=== PATIENT | female | born 1990 | race Hispanic/Latino ===

== ENCOUNTER 2018-06-13 18:31 | Emergency (ER) | payer OTHER ==
[2018-06-13 19:33] LABS: #Basophils 0.1 thou/uL (0.0-0.2); #Lymphocytes 1.5 thou/uL (1.20-3.40); #Monocytes 0.4 thou/uL (0.11-0.59); #Neutrophils 10.7 thou/uL (1.40-6.50); %Basophils 0.4 % (0.0-1.0); %Eosinophils 0.1 % (0.0-10.0); %Lymphocytes 12.1 % (21.0-51.0); %Neutrophils 84.4 % (42.0-75.0); Hemoglobin 11.6 g/dL (12.0-16.0); Mean Corpuscular HGB CONC 31.4 g/dL (32.0-36.0); Mean Corpuscular Hemoglobin 25.1 pg (27.0-31.0); Mean Corpuscular Volume 79.9 fL (78.0-98.0); Mean Platelet Volume 7.7 fL (7.4-10.4); Platelet Count 387 thou/uL (130-400); RBC Distribution Width 15.8 % (11.5-14.5); Red Blood Cell (RBC) Count 4.62 mill/uL (4.20-5.40); White Blood Cell (WBC) Count 12.7 thou/uL (4.8-10.8)
[2018-06-13 19:42] LABS: ALT (SGPT) 22 U/L (8-55); AST (SGOT) 19 U/L (5-34); Albumin 4.5 g/dL (3.5-5.0); Alkaline Phosphatase 118 U/L (40-150); Anion Gap 14 mmol/L (10-20); BUN (Urea Nitrogen) 13 mg/dL (7.0-18.7); Bilirubin, Total 0.3 mg/dL (0.2-1.2); CK (CPK) 120 U/L (29-168); Calc. Creatinine Clearance 0 mL/min (70-130); Calcium 9.4 mg/dL (7.8-10.44); Carbon Dioxide 21 mmol/L (22-29); Chloride 102 mmol/L (98-107); Estimated GFR-MDRD Greater than 90; Globulin 4.3 g/dL (2.4-3.5); Glucose 105 mg/dL (70-105); Potassium 3.7 mmol/L (3.5-5.1); Protein, Total 8.8 g/dL (6.0-8.3); Sodium 133 mmol/L (136-145)
--- NOTE | 2018-06-13 20:00 | CT ---
CT BRAIN WITHOUT CONTRAST: 06/13/18 HISTORY: Headache. FINDINGS: Comparison made with the exam of 02/04/12. The large area of left cerebral porencephaly, encephalomalacia and gliosis with overlying craniotomy changes are again seen. These are unchanged. The ventricular size is stable. No evidence of acute inf arct, hemorrhage or midline shift is seen. Encephalomalacia in the right cerebellar hemisphere appear s to be new since the last exam. No acute osseous abnormalities are seen. The visualized paranasal si nuses and mastoid air cells are well aerated. IMPRESSION: No CT evidence of acute intracranial process. POS: [facility]
[2018-06-13 20:03] LABS: Carbamazepine-Tegretol Less than 1.9 ug/mL (4.0-12.0)
[2018-06-13] MEDS ORDERED: Metoclopramide HCl 10 MG/2 ML VIAL ONE (21:05)
[2018-06-13] MEDS ORDERED: Lorazepam 2 MG/ML VIAL ONE (21:05)
[2018-06-13] MEDS ORDERED: diphenhydrAMINE 50 MG/ML VIAL ONE (21:05)
== END 2018-06-13 22:44 | disposition home or self-care (01) ==
LOC: ERS 18:31
DX: R51 Headache (principal); G40.909 Epilepsy, unspecified, not intractable, without status epilepticus
CPT/HCPCS: 36415; 70450; 80053; 80156; 80184; 82550; 84146; 84484; 85025; 96361; 96374; 96375; J1200; J2060; J2765

== ENCOUNTER 2019-02-19 19:48 | Inpatient (IN) | payer OTHER ==
[2019-02-19] MEDS ORDERED: Lorazepam 2 MG/ML VIAL ONE (20:19)
--- NOTE | 2019-02-19 21:22 | CT ---
CT HEAD WITHOUT CONTRAST: 02/19/19 HISTORY: Seizure. Comparison made to prior exam of 06/13/18. The area of porencephaly and encephalomalacia in the left s uperior frontal lobe is again seen and is stable in appearance. Encephalomalacia involving the right cerebellum is also stable. No hemorrhage or mass. No interval change. IMPRESSION: No acute interval change. POS: OFF
[2019-02-19 21:23] LABS: #Basophils 0.1 thou/uL (0.0-0.2); #Lymphocytes 2.3 thou/uL (1.20-3.40); #Monocytes 1.4 thou/uL (0.11-0.59); #Neutrophils 6.4 thou/uL (1.40-6.50); %Basophils 0.5 % (0.0-1.0); %Lymphocytes 23.1 % (21.0-51.0); %Monocytes 13.4 % (0.0-10.0); Hemoglobin 10.5 g/dL (12.0-16.0); Mean Corpuscular HGB CONC 30.9 g/dL (32.0-36.0); Mean Corpuscular Hemoglobin 23.1 pg (27.0-31.0); Mean Corpuscular Volume 74.9 fL (78.0-98.0); Mean Platelet Volume 8.1 fL (7.4-10.4); Platelet Count 318 thou/uL (130-400); RBC Distribution Width 16.9 % (11.5-14.5); Red Blood Cell (RBC) Count 4.52 mill/uL (4.20-5.40); White Blood Cell (WBC) Count 10.2 thou/uL (4.8-10.8)
[2019-02-19 21:36] LABS: ALT (SGPT) 36 U/L (8-55); AST (SGOT) 34 U/L (5-34); Albumin 4.1 g/dL (3.5-5.0); Alkaline Phosphatase 105 U/L (40-110); Anion Gap 15 mmol/L (10-20); BUN (Urea Nitrogen) 11 mg/dL (7.0-18.7); Bilirubin, Total 0.5 mg/dL (0.2-1.2); Calc. Creatinine Clearance 0 mL/min (70-130); Calcium 8.9 mg/dL (7.8-10.44); Carbon Dioxide 17 mmol/L (22-29); Chloride 101 mmol/L (98-107); Estimated GFR-MDRD Greater than 90; Globulin 4.2 g/dL (2.4-3.5); Glucose 95 mg/dL (70-105); Potassium 3.2 mmol/L (3.5-5.1); Protein, Total 8.3 g/dL (6.0-8.3); Sodium 130 mmol/L (136-145)
[2019-02-19 22:09] LABS: Bilirubin Negative (Negative); Blood, Urine Negative (Negative); Clarity Clear (Clear); Glucose, Urine (Dipstick) Normal (Negative); Leukocyte Negative Leu/uL (Negative); Nitrite Negative (Negative); Protein, Urine (Dipstick) Negative (Neg-Trace); Urobilinogen Normal mg/dL (Less than 2)
[2019-02-19 22:11] LABS: Pregnancy Test - Urine (BHCG) Negative (Negative); Pregu Control Background? CLEAR/WHITE (CLR/WHITE); Pregu Control Bar Appear? YES (CONTROL BAR); Specific Gravity 1.007 (1.002-1.036)
[2019-02-19 22:21] LABS: Amphetamine Not Detected (NotDetected); Barbiturates Screen Detected (NotDetected); Benzodiazepine Screen Not Detected (NotDetected); Cocaine Metabolite Screen Not Detected (NotDetected); Medtox Control Line Valid? VALID (VALID); Medtox Reader # READER 4; Methadone Not Detected (NotDetected); Methamphetamine Not Detected (NotDetected); Opiate Screen Not Detected (NotDetected); Oxycodone Screen Not Detected (NotDetected); Phencyclidine (PCP) Not Detected (NotDetected); THC/Cannabinoid Screen Not Detected (NotDetected); Tricyclic Screen Not Detected (NotDetected)
[2019-02-20 02:24] VITALS: BMI 38.7
[2019-02-20] MEDS ORDERED: HYDROcodone/Acetaminophen 5/325 mg Tablet PO PRN (02:40)
[2019-02-20] MEDS ORDERED: Lorazepam 2 MG/ML VIAL SLOW IVP PRN (02:42)
[2019-02-20] MEDS ORDERED: Potassium Phosphate 30 MMOL in Sodium Chloride 0.9% 500 ML IVPB SCH (03:00)
--- NOTE | 2019-02-20 03:03 | HP ---
PRESENTING COMPLAINT: Recurrent seizure episode. HISTORY OF PRESENT ILLNESS: Eric Wesley is a 28-year-old female with past medical history of brain tumor status post excision with history of recurrent seizure since then, currently on Topamax, phenobarb, and Felbatol. The patient has not of her medications 1 week ago, but restarted taking them after refill 2 days ago, but developed recurrent seizure since last night with episodes occurring initially every few hours, but today episodes will occur in frequency of every 15 minutes. The patient had multiple seizures between presentation in the emergency room and being evaluated of 5 episodes within an hour. The seizure was initially abated with Ativan, but she continued to have recurrent episodes. I had recommended IV Dilantin and she has been seizure-free since the last 1 hour. She is more awake now. She denies any dysuria. She denies any headache. She admits to feeling fatigued. She states since her medication change by her neurologist who is outside of town, she was still having intermittent seizures. Her last episode prior to this acute symptom was 1 month ago. PAST MEDICAL HISTORY: Significant for recurrent seizure disorder. HOME MEDICATIONS: Include phenobarb 32.4 2-1/2 tablets t.i.d., Topamax 50 mg one tab in a.m., half tab at noon and one tab in p.m. as well as Felbatol 600 mg 1-1/2 tab t.i.d. ALLERGIES: NO KNOWN DRUG ALLERGIES. FAMILY HISTORY: No history of seizure activity. SOCIAL HISTORY: The patient is unemployed. Lives at home. No history of alcohol, tobacco, or illicit drug use. REVIEW OF SYSTEMS: All systems reviewed x10 were negative except as mentioned above, despite the patient's fatigue. PHYSICAL EXAMINATION: GENERAL: Young overweight female, drowsy, but conversant. VITAL SIGNS: Blood pressure of 112/68, respiratory rate of 18, O2 saturation is 95% on room air, afebrile. HEENT: Head is atraumatic, normocephalic. Pupils equal and reactive to light. Extraocular motor movement intact. NECK: No JVD. No carotid bruit. RESPIRATORY: Good air entry. No crepitation. CARDIOVASCULAR: S1, S2. Rate and rhythm regular. ABDOMEN: Obese, but soft. Bowel sounds positive. No tenderness. EXTREMITIES: No pedal edema. No calf tenderness. NEURO: The patient is drowsy as noted, but moving extremities. No neurological focal motor deficit now. DIAGNOSTIC STUDIES: Brain CT shows no acute intracranial abnormality, encephalomalacia in the left superior frontal lobe is again seen. Stable from previous exam. LABORATORY DATA: Rest of labs; WBC 10.2, hemoglobin 10.5, and neutrophils 63%. Potassium 3.2, sodium 130, bicarb 17, BUN 11, creatinine 0.6, AST and alkaline phosphatase normal. Urinalysis was negative. Urine test negative. Urine drug screen positive for barbiturates. Serum phenobarb level of 16.4. IMPRESSION: Status epilepticus - resolved. PLAN: We will admit the patient to the neuro unit for observation. If phenobarb levels within normal limits, we will continue phenobarb at current dose since previous recurrent seizure even before brief period of medication and nonadherence. We will increase Topamax to 50 mg t.i.d. Continue Felbatol and phenobarb at current dosage. We will consult Neuro for any additional input in a.m. No evidence of infection on examination today. We will continue gentle IV fluid. We will correct potassium. We will obtain magnesium level and also correct if low. Subcutaneous heparin for DVT prophylaxis. Given mild anemia, we will obtain iron level. If low, we will start the patient on p.o. iron. ADVANCED DIRECTIVES: The patient is full code. Job ID: [id number]
[2019-02-20 03:11] LABS: #Basophils 0.1 thou/uL (0.0-0.2); #Lymphocytes 2.7 thou/uL (1.20-3.40); #Monocytes 1.1 thou/uL (0.11-0.59); #Neutrophils 5.3 thou/uL (1.40-6.50); %Lymphocytes 29.2 % (21.0-51.0); %Monocytes 12.3 % (0.0-10.0); %Neutrophils 57.4 % (42.0-75.0); Hemoglobin 9.9 g/dL (12.0-16.0); Mean Corpuscular HGB CONC 32.8 g/dL (32.0-36.0); Mean Corpuscular Hemoglobin 24.3 pg (27.0-31.0); Mean Corpuscular Volume 74.2 fL (78.0-98.0); Mean Platelet Volume 8.1 fL (7.4-10.4); Platelet Count 300 thou/uL (130-400); RBC Distribution Width 16.7 % (11.5-14.5); Red Blood Cell (RBC) Count 4.06 mill/uL (4.20-5.40); White Blood Cell (WBC) Count 9.3 thou/uL (4.8-10.8)
[2019-02-20 03:32] LABS: Anion Gap 12 mmol/L (10-20); BUN (Urea Nitrogen) 9 mg/dL (7.0-18.7); Calc. Creatinine Clearance 183 mL/min (70-130); Calcium 8.8 mg/dL (7.8-10.44); Carbon Dioxide 20 mmol/L (22-29); Chloride 109 mmol/L (98-107); Estimated GFR-MDRD Greater than 90; Glucose 115 mg/dL (70-105); Iron 18 ug/dL (50-170); Iron Binding Capacity, Total 386 mcg/dL (265-497); Sodium 138 mmol/L (136-145)
[2019-02-20] MEDS ORDERED: Potassium Chloride 20 MEQ TAB PO SCH (04:00)
[2019-02-20] MEDS: Potassium Chloride 10 MEQ in Dextrose 5%-Lactated Ringers 1,000 ML IV SCH ×2 (05:13→16:43)
[2019-02-20] MEDS ORDERED: FLU VACC QS2019-20(6MOS UP)/PF 60 MCG/0.5 ML SYRINGE IM ONE (09:00)
[2019-02-20] MEDS ORDERED: Topiramate 100 MG TAB PO SCH (09:00)
[2019-02-20] MEDS: Heparin 5,000 UNITS/ML VIAL SC SCH ×3 (09:16→20:52)
[2019-02-20] MEDS: PHENobarbital 32.4 MG TAB PO SCH ×3 (09:17→20:57)
[2019-02-20] MEDS: FELBAMATE 600 MG PO SCH ×3 (09:20→20:52)
[2019-02-20] MEDS: Acetaminophen 325 MG TAB PO PRN (10:43)
[2019-02-20] MEDS ORDERED: levETIRAcetam 2,000 MG in Sodium Chloride 0.9% 100 ML IVPB SCH (17:00)
--- NOTE | 2019-02-20 20:45 | CON ---
DATE OF CONSULTATION: 02/20/2019 CONSULTING PHYSICIAN: Hospitalist Service. IMPRESSION: 1. Partial status epilepticus. 2. 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 PLAN: 1. Continue phenobarbital and Felbatol. 2. Discontinue Topamax. 3. Add Keppra. HISTORY OF PRESENT ILLNESS: Ms. Reyes is a 28-year-old female. She had a brain tumor resected in 2009. She has been followed by a neurologist in [place], [place]. They report that she has been on the same limited regimen of medications with increasing doses for the last several years. Her seizures are usually lateralized to the right side. They may go on for a day or two and usually resolve spontaneously. They have not had problems maintaining seizure control to this severity since her admission. She has been witnessed to have frequent seizures about every 5 minutes. Her EEG confirmed a left hemispheric periodic focus of seizure activity. Her CT of the brain shows an area of edema in the left frontal lobe as well as in the right cerebellum. Her lab work was otherwise unremarkable. PAST MEDICAL HISTORY: Otherwise, negative. ALLERGIES: NONE. MEDICATION: List reviewed. SOCIAL HISTORY: She lives at home with the assistance of her family. She reportedly is independent in her activities of daily living. She has no tobacco or alcohol use. FAMILY HISTORY: Noncontributory. REVIEW OF SYSTEMS: Not obtainable at this point. PHYSICAL EXAMINATION: GENERAL: A well-nourished young woman, who is lying in bed, eating her supper. She is intermittently talkative. HEENT: Pupils are equal. Conjunctivae are clear. Oropharynx is clear. NECK: No lymphadenopathy. EXTREMITIES: No cyanosis or edema. NEUROLOGIC: She is awake and cooperative. Her face appears to be symmetric. She has some spastic right hemiparesis. No abnormal movements are seen. Gait is not tested. SUMMARY: Make adjustments in her treatment plan with hopes that this will improve with a different regimen. Job ID: [id number] [facility]
[2019-02-21 00:36] LABS: Anion Gap 11 mmol/L (10-20); BUN (Urea Nitrogen) 6 mg/dL (7.0-18.7); Calc. Creatinine Clearance 205 mL/min (70-130); Calcium 8.9 mg/dL (7.8-10.44); Carbon Dioxide 21 mmol/L (22-29); Chloride 109 mmol/L (98-107); Estimated GFR-MDRD Greater than 90; Glucose 103 mg/dL (70-105); Potassium 3.2 mmol/L (3.5-5.1); Sodium 138 mmol/L (136-145)
[2019-02-21] MEDS: Acetaminophen 325 MG TAB PO PRN ×4 (00:55→15:30)
[2019-02-21] MEDS: FELBAMATE 600 MG PO SCH ×3 (08:29→21:18)
[2019-02-21] MEDS: Heparin 5,000 UNITS/ML VIAL SC SCH ×3 (08:29→21:19)
[2019-02-21] MEDS: PHENobarbital 32.4 MG TAB PO SCH ×3 (08:33→21:19)
[2019-02-21] MEDS: Lorazepam 2 MG/ML VIAL SLOW IVP PRN ×2 (08:36→17:00)
[2019-02-21] MEDS ORDERED: Potassium Chloride 20 MEQ TAB PO SCH (09:15)
[2019-02-21] MEDS ORDERED: Iron Sucrose Complex 100 MG in Sodium Chloride 0.9% 100 ML IVPB SCH (09:15)
[2019-02-21] MEDS ORDERED: Iron, Sodium Ferric Gluconate 125 MG in Sodium Chloride 0.9% 100 ML IVPB SCH (09:30)
--- NOTE | 2019-02-21 10:07 | EEG ---
Referring Physician: Alia SPEARS EEG # [id number] TEST TYPE: ROUTINE PORTABLE INPATIENT REPORT: AN EEG USING THE INTERNATIONAL TEN-TWENTY SYSTEM OF ELECTRODE PLACEMENT WAS PERFORMED. The waking background, at best, is a 9 hertz alpha frequency. There were frequent bursts of left hemispheric dysrhythmic activity. Some of this appeared to be high amplitude alpha and others appeared to be more of a low amplitude sharp and slow wave discharge in the region. The bursts would last around 20 seconds. Photic stimulation was unremarkable. IMPRESSION: THIS IS AN ABNORMAL STUDY FOR THE FINDINGS OF FREQUENT LEFT HEMISPHERIC EPILEPTIFORM BURSTS CONSISTENT WITH SEIZURE ACTIVITY. Joy Operator: LUCINDA Forklift Picker: [email or web address]
--- NOTE | 2019-02-21 12:15 | PDOC.HOSPP ---
- Subjective Encounter Date: 02/21/19 Encounter Time: 09:00 Subjective: pt in bed not oriented, mom at bedside states " she just had a seizure". pt was given ativan - Objective Vital Signs & Weight: Vital Signs (12 hours) Temp Pulse Resp BP Pulse Ox 02/21/19 11:00 98.1 F 99 16 119/79 98 02/21/19 07:00 98.6 F 95 18 100/62 93 L 02/21/19 03:18 98.8 F 119 H 18 124/87 97 Weight Weight 198 lb I&O: 02/20/19 02/21/19 02/22/19 06:59 06:59 06:59 Intake Total 400 1560 400 Balance 400 1560 400 Result Diagrams: 02/20/19 03:04 02/21/19 00:11 Hospitalist ROS - Review of Systems Other: unable to obtain - Medication Medications: Active Medications Generic Name Dose Route Start Last Admin Trade Name Freq PRN Reason Stop Dose Admin Acetaminophen 650 mg 02/20/19 02:40 02/21/19 08:29 Tylenol PO 650 mg Q4H PRN Administration Headache/Fever/Mild Pain (1-3) Heparin Sodium (Porcine) 5,000 units 02/20/19 09:00 02/21/19 08:29 Heparin SC 5,000 units TID JONATAN Administration Levetiracetam 750 mg/ Sodium 107.5 mls @ 215 mls/hr 02/21/19 09:00 02/21/19 08:44 Chloride IVPB 107.5 mls BID JONATAN Administration Lorazepam 1 mg 02/21/19 08:07 02/21/19 08:36 Ativan SLOW IVP 1 mg Q6H PRN Administration Seizures Felbamate 600 Mg 1.5 each 02/20/19 09:00 02/21/19 08:29 Tablet PO 1.5 each TID JONATAN Administration Phenobarbital 81 mg 02/20/19 09:00 02/21/19 08:33 Phenobarbital PO 81 mg TID JONATAN Administration - Exam Neck: negative: supple, symmetric, no JVD, no thyromegaly, no lymphadenopathy, no carotid bruit, JVD Heart: negative: RRR, no murmur, no gallops, no rubs, normal peripheral pulses, irregular, diminshed peripheral pulses, murmur present, II/IV, III/IV Respiratory: negative: CTAB, no wheezes, no rales, no ronchi, normal chest expansion, no tachypnea, normal percussion, rales, rhonchi, tachypneic, wheezes Hosp A/P (1) Status epilepticus Code(s): G40.901 - EPILEPSY, UNSP, NOT INTRACTABLE, WITH STATUS EPILEPTICUS Status: Acute (2) Seizure Code(s): R56.9 - UNSPECIFIED CONVULSIONS Status: Acute (3) Brain lesion Code(s): G93.9 - DISORDER OF BRAIN, UNSPECIFIED Status: Acute - Plan pt's antiseizure meds adjusted per neurology. will monitor. pt not oriented currently possible post ictal vs ativan related. will watch her closely
--- NOTE | 2019-02-21 14:00 | PRG ---
DATE OF SERVICE: 02/21/2019 The patient continues to have focal seizures despite the loading dose of Keppra. She has been maintained on the phenobarbital and Felbatol. Her night was otherwise uneventful. Her vital signs have been stable and she is afebrile. She has not received any Ativan overnight. I have suggested we try to do some Ativan today to see if we can break the cycle. Job ID: [id number]
[2019-02-21] MEDS: Polyethylene Glycol 3350 17 GM Packet PO PRN (17:00)
[2019-02-21] MEDS: Senokot S 8.6-50 MG TAB PO SCH (21:19)
[2019-02-22] MEDS: PHENobarbital 32.4 MG TAB PO SCH ×3 (10:06→22:18)
[2019-02-22] MEDS: Heparin 5,000 UNITS/ML VIAL SC SCH ×3 (10:07→22:19)
[2019-02-22] MEDS: Senokot S 8.6-50 MG TAB PO SCH ×2 (10:07→22:19)
[2019-02-22] MEDS: FELBAMATE 600 MG PO SCH ×3 (10:08→22:18)
[2019-02-22] MEDS: Ferrous Gluconate 324 MG TAB PO SCH (10:09)
--- NOTE | 2019-02-22 14:04 | PDOC.HOSPP ---
- Subjective Encounter Date: 02/22/19 Encounter Time: 13:45 Subjective: pt up in bed drowsy but follows commands. - Objective Vital Signs & Weight: Vital Signs (12 hours) Temp Pulse Resp BP Pulse Ox 02/22/19 11:46 98.7 F 108 H 16 103/60 96 02/22/19 07:44 98.4 F 103 H 16 122/66 97 02/22/19 03:57 97.2 F L 94 16 96/55 L 96 Weight Weight 198 lb I&O: 02/21/19 02/22/19 02/23/19 06:59 06:59 06:59 Intake Total 1560 1440 Balance 1560 1440 Result Diagrams: 02/20/19 03:04 02/21/19 00:11 Hospitalist ROS - Review of Systems Other: pt sleepy - Medication Medications: Active Medications Generic Name Dose Route Start Last Admin Trade Name Freq PRN Reason Stop Dose Admin Acetaminophen 650 mg 02/20/19 02:40 02/21/19 15:30 Tylenol PO 650 mg Q4H PRN Administration Headache/Fever/Mild Pain (1-3) Ferrous Gluconate 324 mg 02/22/19 08:00 02/22/19 10:09 Fergon PO 324 mg QAM-WM JONATAN Administration Heparin Sodium (Porcine) 5,000 units 02/20/19 09:00 02/22/19 10:07 Heparin SC 5,000 units TID JONATAN Administration Levetiracetam 750 mg/ Sodium 107.5 mls @ 215 mls/hr 02/21/19 09:00 02/22/19 10:05 Chloride IVPB 107.5 mls BID JONATAN Administration Lorazepam 1 mg 02/21/19 08:07 02/21/19 17:00 Ativan SLOW IVP 1 mg Q6H PRN Administration Seizures Felbamate 600 Mg 1.5 each 02/20/19 09:00 02/22/19 10:08 Tablet PO 1.5 each TID JONATAN Administration Phenobarbital 81 mg 02/20/19 09:00 02/22/19 10:06 Phenobarbital PO 81 mg TID JONATAN Administration Polyethylene Glycol 17 gm 02/21/19 16:07 02/21/19 17:00 Miralax PO 17 gm DAILYPRN PRN Administration Constipation Senna/Docusate Sodium 1 tab 02/21/19 21:00 02/22/19 10:07 Senokot S PO 1 tab BID JONATAN Administration - Exam Heart: negative: RRR, no murmur, no gallops, no rubs, normal peripheral pulses, irregular, diminshed peripheral pulses, murmur present, II/IV, III/IV Respiratory: negative: CTAB, no wheezes, no rales, no ronchi, normal chest expansion, no tachypnea, normal percussion, rales, rhonchi, tachypneic, wheezes Gastrointestinal: negative: soft, non-tender, non-distended, normal bowel sounds , no palpable masses, no hepatomegaly, no splenomegaly, no bruit, no guarding, no rigidity, tender to palpation, distended, diminished bowl sounds, voluntary guarding Hosp A/P (1) Status epilepticus Code(s): G40.901 - EPILEPSY, UNSP, NOT INTRACTABLE, WITH STATUS EPILEPTICUS Status: Acute (2) Seizure Code(s): R56.9 - UNSPECIFIED CONVULSIONS Status: Acute (3) Brain lesion Code(s): G93.9 - DISORDER OF BRAIN, UNSPECIFIED Status: Acute - Plan pt's antiseizure meds adjusted per neurology. will monitor. pt not oriented currently possible post ictal vs ativan related. will watch her closely. 02/22 pt is drowsy but able to follow commands. will continue current meds and will give additional prn if needed.
[2019-02-22 14:54] LABS: #Basophils 0.1 thou/uL (0.0-0.2); #Eosinphils 0.1 thou/uL (0.0-0.7); #Lymphocytes 3.1 thou/uL (1.20-3.40); #Monocytes 0.8 thou/uL (0.11-0.59); #Neutrophils 5.4 thou/uL (1.40-6.50); %Basophils 0.8 % (0.0-1.0); %Eosinophils 0.7 % (0.0-10.0); %Neutrophils 57.5 % (42.0-75.0); Hemoglobin 10.3 g/dL (12.0-16.0); Mean Corpuscular HGB CONC 32.6 g/dL (32.0-36.0); Mean Corpuscular Hemoglobin 24.5 pg (27.0-31.0); Mean Platelet Volume 8.7 fL (7.4-10.4); Platelet Count 307 thou/uL (130-400); RBC Distribution Width 17.3 % (11.5-14.5); Red Blood Cell (RBC) Count 4.21 mill/uL (4.20-5.40); White Blood Cell (WBC) Count 9.3 thou/uL (4.8-10.8)
[2019-02-22 15:13] LABS: Anion Gap 11 mmol/L (10-20); BUN (Urea Nitrogen) 9 mg/dL (7.0-18.7); Calc. Creatinine Clearance 195 mL/min (70-130); Calcium 8.5 mg/dL (7.8-10.44); Carbon Dioxide 24 mmol/L (22-29); Chloride 103 mmol/L (98-107); Estimated GFR-MDRD Greater than 90; Glucose 94 mg/dL (70-105); Potassium 3.3 mmol/L (3.5-5.1); Sodium 135 mmol/L (136-145)
[2019-02-22] MEDS: Polyethylene Glycol 3350 17 GM Packet PO PRN (16:24)
[2019-02-23 05:32] LABS: Anion Gap 14 mmol/L (10-20); BUN (Urea Nitrogen) 7 mg/dL (7.0-18.7); Calc. Creatinine Clearance 201 mL/min (70-130); Calcium 8.8 mg/dL (7.8-10.44); Carbon Dioxide 25 mmol/L (22-29); Chloride 104 mmol/L (98-107); Estimated GFR-MDRD Greater than 90; Glucose 82 mg/dL (70-105); Potassium 3.5 mmol/L (3.5-5.1); Sodium 139 mmol/L (136-145)
[2019-02-23 07:01] LABS: Anisocytosis SLIGHT = 6-15 cells (100X) (0-5/hpf); Band 3 % (5-11); Hemoglobin 10.3 g/dL (12.0-16.0); Lymphocytes 47 % (21-51); MDiff Complete? YES; Mean Corpuscular HGB CONC 32.8 g/dL (32.0-36.0); Mean Corpuscular Hemoglobin 24.7 pg (27.0-31.0); Mean Corpuscular Volume 75.2 fL (78.0-98.0); Mean Platelet Volume 8.7 fL (7.4-10.4); Monocytes 1 % (0-10); Neutrophil 49 % (42-75); Platelet Count 323 thou/uL (130-400); Platelet Morphology Comment Appears Adequate; RBC Distribution Width 17.5 % (11.5-14.5); Red Blood Cell (RBC) Count 4.18 mill/uL (4.20-5.40); White Blood Cell (WBC) Count 9.8 thou/uL (4.8-10.8)
[2019-02-23] MEDS: FELBAMATE 600 MG PO SCH ×3 (09:02→20:49)
[2019-02-23] MEDS: Ferrous Gluconate 324 MG TAB PO SCH (09:02)
[2019-02-23] MEDS: Heparin 5,000 UNITS/ML VIAL SC SCH ×3 (09:02→20:47)
[2019-02-23] MEDS: Senokot S 8.6-50 MG TAB PO SCH ×2 (09:03→20:48)
[2019-02-23] MEDS: PHENobarbital 32.4 MG TAB PO SCH ×3 (09:59→20:48)
--- NOTE | 2019-02-23 14:34 | PRG ---
DATE OF SERVICE: 02/23/2019 The patient reports that she has not had any seizures for 2 days. At this point, she feels well. She did not have any particular complaints, otherwise. Vital signs have been stable and she has been afebrile. She seems to be back to normal functional level. We continue current doses of anticonvulsants and she can be followed up as an outpatient. Job ID: [id number]
[2019-02-24 07:49] VITALS: BP 96/59; TEMP 98
[2019-02-24] MEDS: FELBAMATE 600 MG PO SCH (09:27)
[2019-02-24] MEDS: Heparin 5,000 UNITS/ML VIAL SC SCH (09:27)
[2019-02-24] MEDS: Ferrous Gluconate 324 MG TAB PO SCH (09:27)
[2019-02-24] MEDS: PHENobarbital 32.4 MG TAB PO SCH (09:28)
[2019-02-24] MEDS: Senokot S 8.6-50 MG TAB PO SCH (09:28)
[2019-02-24 13:10] LABS: Topiramate (Topamax) Test 2.5 ug/mL (2.0-25.0)
--- NOTE | 2019-02-26 07:47 | PQF ---
DELMI GOSS TODD A MD [id number] [facility] [id number] CLINICAL DOCUMENTATION CLARIFICATION FORM: POST DISCHARGE Addendum to original discharge summary date: ____ Late entry note date: __ DATE:02/26/2019 ATTN: ROBERT CALDERON MD Please exercise your independent, professional judgment in responding to the clarification form. Clinical indicators are provided on the bottom of this form for your review Please check appropriate box(s) to clarify if the following diagnosis has been ruled in or ruled out: Cerebral edema [ ] Ruled in diagnosis [ ] Continue to treat [ ] Resolved [ ] Ruled out diagnosis [ ] Cannot rule out diagnosis [ ] Other diagnosis [ ] Unable to determine For continuity of documentation, please document condition throughout progress notes and discharge summary. Thank You. CLINICAL INDICATORS - SIGNS / SYMPTOMS / LABS Partial status epilepticus-Documented in consultation report on 02/20 by Nisa Calderon MD. 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 She had been witnessed to have frequent seizures about every 5 minutes.Her EEG confirmed a left hemispheric periodic focus of seizure activity-Documented in consultation report on 02/20 by Nisa Calderon MD. Her CT of the brain shows an area of edema in the left frontal lobe as well as in the right cerebellum-Documented in consultation report on 02/20 by Nisa Calderon MD. No acute interval change-Documented in CT Brain W/O con on 02/19 RISK FACTORS Partial status epilepticus-Documented in consultation report on 02/20 by Nisa Calderon MD. 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 All Rights Reserved [email or web address] [not provided] MTDD
--- NOTE | 2019-02-27 12:09 | DIS ---
DATE OF ADMISSION: 02/19/2019 DATE OF DISCHARGE: 02/24/2019 DISCHARGE DIAGNOSES: 1. Status post epilepticus. 2. History of benign brain tumor. HOSPITAL COURSE: The patient is a 28-year-old female, who initially presented to the hospital with worsening seizures. The patient upon presentation was on 3 medications for her seizure, which was Topamax, phenobarb, and Felbatol. The patient, however, was seen by Neurology, was given a few doses of Ativan since her seizures were not tonic-clonic, they were very subtle. The patient's medications were changed. She was continued on the Felbatol; however, her phenobarb was increased to 81 mg t.i.d. and she was added Keppra instead of the Topamax. The patient did really well and was 2 days without any seizures. I have recommended the family to follow up with Neurology. Also, the patient had missed a few doses of her antiseizure medications. I have recommended against this, especially given the fact that she is very sensitive and can definitely have worsening seizures in the past. The patient's family understands; however, she states that it is due to Medicaid, who does not allow the prescription to be refilled except for the day that expires. I did tell her to bring this up with her primary and also with her neurology. HOME MEDICATIONS: 1. Iron 325 daily. 2. Phenobarbital mg t.i.d. 3. MiraLAX 17 g daily. 4. Keppra 750 b.i.d. 5. Felbamate p.o. t.i.d. PHYSICAL EXAMINATION: VITAL SIGNS: Temperature of 98.0, pulse 81, respiratory rate 19, oxygen saturation 97% on room air, blood pressure 96/59. GENERAL: She is awake, alert, and oriented x3. Does not appear in distress. CV: S1, S2 present. No murmurs, rubs, or gallops. ABDOMEN: Soft and nontender. Bowel sounds are present x2. EXTREMITIES: She does have weakness of her right upper extremity, which is chronic. Her urine was completely normal. Chest x-ray was normal. test was normal. Again, she will be discharged home with her family and she will follow up with Neurology and primary. Job ID: [id number]
== END 2019-02-24 11:07 | disposition home or self-care (01) | DRG 101 ==
LOC: ERS 19:48 → 2SE 23:48 → OBSVTOIN 23:48
PROVIDERS: ADMIT Internal Medicine; ATTEND Internal Medicine
DX: G40.901 Epilepsy, unspecified, not intractable, with status epilepticus (principal); I69.851 Hemiplegia and hemiparesis following other cerebrovascular disease affecting right dominant side; G93.9 Disorder of brain, unspecified; R40.2362 Coma scale, best motor response, obeys commands, at arrival to emergency department; R40.2142 Coma scale, eyes open, spontaneous, at arrival to emergency department; R40.2252 Coma scale, best verbal response, oriented, at arrival to emergency department; D64.9 Anemia, unspecified
CPT/HCPCS: 36415; 70450; 80048; 80053; 80184; 80201; 80306; 81003; 81025; 82728; 83540; 83550; 83735; 85025; 90471; 90686; 95816; 95819; 96361; 96365; 96375; G0008; J1644; J1953; J2060; J2916; J3480; J3490; J7121; Q2009

== ENCOUNTER 2019-04-21 19:19 | Emergency (ER) | payer OTHER ==
--- NOTE | 2019-04-21 22:22 | ULT ---
EXAM: Right lower extremity venous Doppler US HISTORY: Right lower extremity edema and pain FINDINGS: Grayscale, color-flow, Doppler evaluation, spectral analysis of the right lower extremity venous stru ctures is performed with 2-D imaging. The right common femoral, superficial femoral, popliteal, posterior tibial, proximal greater saphenous and profunda femoral veins are imaged. There is normal luminal compressibility, flow, and augmentation the visualized deep venous structures of the right lower extremity. In the region of pain (right medial upper calf) there are multiple small collections of fluid adjacen t to bone, the largest fluid collection measuring 1.5 x 0.4 x 0.5 cm. IMPRESSION: No evidence of a deep vein thrombosis in the right lower extremity.
== END 2019-04-21 23:18 | disposition home or self-care (01) ==
LOC: ERS 19:19
DX: M79.661 Pain in right lower leg (principal); M62.461 Contracture of muscle, right lower leg; G40.909 Epilepsy, unspecified, not intractable, without status epilepticus; Z79.899 Other long term (current) drug therapy

== ENCOUNTER 2020-11-14 04:04 | Emergency (ER) | payer OTHER ==
[2020-11-14] MEDS ORDERED: Ondansetron PF 4 MG/2 ML Vial ONE (04:42)
[2020-11-14] MEDS ORDERED: Acetaminophen 500 MG TAB ONE (04:42)
== END 2020-11-14 05:50 | disposition home or self-care (01) ==
LOC: ERS 04:04
DX: G40.909 Epilepsy, unspecified, not intractable, without status epilepticus (principal); Z79.899 Other long term (current) drug therapy
CPT/HCPCS: 96374; J2405

== ENCOUNTER 2020-11-15 17:15 | Emergency (ER) | payer OTHER ==
[2020-11-15] MEDS ORDERED: Cyclobenzaprine 10 MG TAB ONE (20:55)
[2020-11-15] MEDS ORDERED: Ketorolac Tromethamine 30 MG/ML VIAL ONE (20:55)
== END 2020-11-15 21:09 | disposition home or self-care (01) ==
LOC: ERS 17:15
DX: G62.9 Polyneuropathy, unspecified (principal); M62.838 Other muscle spasm; G40.909 Epilepsy, unspecified, not intractable, without status epilepticus; Z79.899 Other long term (current) drug therapy
CPT/HCPCS: 36415; 70450; 80167; 80177; 80184; 96372; J1885

== ENCOUNTER 2022-12-26 16:25 | Emergency (ER) | payer OTHER ==
[2022-12-26] MEDS ORDERED: Diazepam 10 MG/2 ML SYRINGE ONE (17:36)
[2022-12-26] MEDS ORDERED: Acetaminophen 650 MG Suppository ONE (18:00)
[2022-12-26 18:15] LABS: #Monocytes 0.4 thou/uL (0.11-0.59); #Neutrophils 6.1 thou/uL (1.40-6.50); %Basophils 0.5 % (0.0-1.0); %Lymphocytes 17.8 % (21.0-51.0); %Monocytes 5.5 % (0.0-10.0); Hematocrit 29.8 % (36.0-47.0); Mean Corpuscular HGB CONC 30.2 g/dL (32.0-36.0); Mean Corpuscular Hemoglobin 19.3 pg (27.0-31.0); Mean Corpuscular Volume 63.8 fl (78.0-98.0); Mean Platelet Volume 8.8 fL (7.4-10.4); Platelet Count 577 10x3/uL (130-400); RBC Distribution Width 19.5 % (11.5-14.5); Red Blood Cell (RBC) Count 4.67 mill/uL (4.20-5.40); White Blood Cell (WBC) Count 8.1 10x3/uL (4.8-10.8)
[2022-12-26] MEDS ORDERED: cefTRIAXone (ROCEPHIN) 2 GM VIAL ONE (18:17)
[2022-12-26] MEDS ORDERED: Sodium Chloride 0.9% 100 ML ONE ×2 (18:20→18:21)
[2022-12-26 18:27] LABS: BHCG - Serum Negative (NEGATIVE); Pregs Control Background? CLEAR/WHITE (CLR/WHITE); Pregs Control Bar Appear? YES (CONTROL BAR)
[2022-12-26 18:43] LABS: ALT (SGPT) 24 U/L (8-55); AST (SGOT) 20 U/L (5-34); Albumin 4.1 g/dL (3.5-5.0); Alkaline Phosphatase 111 U/L (40-110); Anion Gap 16 mmol/L (10-20); BUN (Urea Nitrogen) 6 mg/dL (7.0-18.7); Bilirubin, Total 0.3 mg/dL (0.2-1.2); Calc. Creatinine Clearance 0 mL/min (70-130); Calcium 8.9 mg/dL (7.8-10.44); Carbon Dioxide 22 mmol/L (22-29); Chloride 94 mmol/L (98-107); Estimated GFR 125; Glucose 104 mg/dL (70-105); Lipase 24 U/L (8-78); Potassium 3.6 mmol/L (3.5-5.1); Protein, Total 9.1 g/dL (6.0-8.3); Sodium 128 mmol/L (136-145)
[2022-12-26 18:50] LABS: Anisocytosis SLIGHT = 6-15 cells HPF (0-5); CellaVision Operator ID LAB.KB; Hypochromia SLIGHT = 6-15 cells HPF (0-5); Microcytosis MODERATE=15-30 cells HPF (0-5); Platelet Adequacy Comment Platelets Increased; Polychromasia SLIGHT = 2-3 cells HPF (0-2); Target Cells SLIGHT = 2-5 cells HPF (0-1)
[2022-12-26 19:41] LABS: Bacteria/HPF None Seen HPF (None Seen); Bilirubin Negative (Negative); Blood, Urine Negative (Negative); CAUTI Indications for Culture Alt mental st,lethar; Clarity Clear (Clear); Glucose, Urine (Dipstick) Normal (Negative); Ketone, Urine Negative (Negative); Leukocyte Negative Leu/uL (Negative); Nitrite Negative (Negative); Protein, Urine (Dipstick) 100 mg/dL (Neg-Trace); RBC/HPF 0-3 HPF (0-3); Urobilinogen Normal mg/dL (Less than 2); WBC/HPF 0-3 HPF (0-3); pH, Urine 7.5 (5.0-9.0)
[2022-12-26 19:48] LABS: Urine Culture Reflex No No
[2022-12-26] MEDS ORDERED: levETIRAcetam 500 MG/5 ML VIAL ONE (21:42)
[2022-12-26] MEDS ORDERED: Vancomycin 1 GM/200 ML (FROZEN) BAG ONE (21:43)
[2022-12-26] MEDS ORDERED: SODIUM CHLORIDE 0.9% IVPB SCH (22:15)
[2022-12-26] MEDS ORDERED: ACYCLOVIR SODIUM IVPB SCH (22:15)
[2022-12-26] MEDS ORDERED: Ketorolac Tromethamine 30 MG/ML VIAL ONE (23:48)
[2022-12-27 00:41] LABS: SARS-CoV-2 NAA Rapid Test DETECTED (NotDetected)
== END 2022-12-27 10:22 | disposition short-term general hospital (02) ==
LOC: ERS 16:25
DX: R56.9 Unspecified convulsions (principal); R50.9 Fever, unspecified; E87.1 Hypo-osmolality and hyponatremia; Z20.822 Contact with and (suspected) exposure to COVID-19
CPT/HCPCS: 70450; 71046; 80053; 81001; 83605; 83690; 84443; 84703; 85025; 87040; 93005; 96361; 96365; 96366; 96367; 96375; J0133; J0696; J1885; J1953; J3360; J3370-JW; J3490; J7050